=== PATIENT | female | born 1980 | race Two or more races ===

== ENCOUNTER 2017-06-21 09:27 | Outpatient (CLI) | payer OTHER | END 2017-06-21 15:00 | disposition home or self-care (01) | LOC: RX STUDY 09:27 | DX: N92.5 Other specified irregular menstruation (principal); N94.6 Dysmenorrhea, unspecified ==

== ENCOUNTER 2023-02-28 05:28 | Day surgery (SDC) | payer OTHER ==
[2023-02-20 12:04] LABS: ALBUMIN 4.2 gm/dL (3.4-5.0); ALKALINE PHOSPHATASE 122 U/L (50-136); ALT/SGPT 83 U/L (12-78); AST/SGOT 30 U/L (15-37); BILIRUBIN TOTAL 0.35 mg/dL (0.3-1.2); BILIRUBIN,CONJUGATED < 0.10 mg/dL (0.0-0.2); BILIRUBIN,UNCONJUGATED 0.25 mg/dL (0.0-0.6); TOTAL PROTEIN 7.5 gm/dL (6.4-8.2)
[2023-02-28] MEDS ORDERED: TRAMADOL HCL50 MG PO (08:55)
[2023-02-28] MEDS ORDERED: MIRALAX17 GM PO (08:55)
[2023-02-28] MEDS ORDERED: SURFAK240 M1 PO (08:56)
[2023-02-28] MEDS ORDERED: NEURONTIN600 M1 PO (08:56)
== END 2023-02-28 11:50 | disposition home or self-care (01) ==
LOC: CIR.AMB 05:28
PROVIDERS: ATTEND Surgery
DX: K80.10 Calculus of gallbladder with chronic cholecystitis without obstruction (principal); K42.9 Umbilical hernia without obstruction or gangrene; I10 Essential (primary) hypertension; Z20.822 Contact with and (suspected) exposure to COVID-19